=== PATIENT | female | born 1950 ===

== ENCOUNTER 2017-07-21 08:44 | Day surgery (SDC) | payer MEDICARE ==
[2017-07-18 10:43] VITALS: BMI 28.3
[2017-07-21] MEDS ORDERED: Midazolam 2 MG/2 ML VIAL ONE (09:22)
[2017-07-21] MEDS ORDERED: Lidocaine 1% Inj (20ml) ONE (09:23)
[2017-07-21 09:35] LABS: BASO # 0.01 K/mm3 (0.0-2.0); BASO % 0.2 % (0.0-3.0); EOS # 0.1 (0.0-0.7); EOS % 1.7 % (1.5-5.0); GRAN # 2.52 (1.4-6.5); HEMOGLOBIN 13.3 g/dL (12.0-16.0); LYMPH # 1.7 (1.2-3.4); LYMPH % 36.6 % (22.0-35.0); MEAN CELL VOLUME 93.5 fl (80.0-105.0); MEAN CORPUSCULAR HEMOGLOBIN 31.1 pg (25.0-35.0); MEAN CORPUSCULAR HGB CONC 33.3 g/dl (31.0-37.0); MEAN PLATELET VOLUME 10.1 fl (7.0-11.0); MONO # 0.4 (0.1-0.6); MONO % 7.5 % (1.0-6.0); RBC 4.28 10^6/uL (3.5-6.1); WHITE BLOOD COUNT 4.7 10^3/ul (4.5-11.0)
[2017-07-21 09:57] LABS: INR 0.92 (0.93-1.08); PARTIAL THROMBOPLASTIN TIME 29.4 Seconds (25.1-36.5); PROTHROMBIN TIME 10.6 SECONDS (9.4-12.5)
[2017-07-21] MEDS ORDERED: Oxycodone/Acetaminophen 5/325 mg Tab PO PRN (10:09)
[2017-07-21] MEDS ORDERED: Sodium Chloride 0.45% 1,000 ML IV SCH (10:15)
[2017-07-21 11:36] VITALS: RESP 18; TEMP 98.4; O2SAT 96
[2017-07-21 12:35] VITALS: BP 110/60; PULSE 58
--- NOTE | 2017-07-21 14:52 | US ---
PROCEDURE: Ultrasound-guided thyroid fine needle aspiration biopsy. CLINICAL HISTORY: Dominant 1.5 cm isoechoic nodule in the isthmus. Evaluate for malignancy. PHYSICIAN(S): Richard Treviño M.D. TECHNIQUE: The relative risks and indications for the procedure were explained to the patient through a concert singer and consent obtained. The patient was placed supine on the stretcher with the neck extended and preliminary sonography of the thyroid performed. This reveal 1.5 cm isoechoic nodule in the isthmus. Smaller nodules are noted on the right The neck was prepped and draped in the usual sterile fashion. Conscious sedation and monitoring were provided throughout the procedure by a nurse. 1% Xylocaine was used to anesthetize the skin and soft tissues at the access site. Three passes with a 22-gauge needle were performed under ultrasound guidance for fine needle aspiration of the 1.5 cm isoechoic nodule in the isthmus. The slides were reviewed by pathology and deemed adequate. The patient tolerated the procedure well. IMPRESSION: 1. Ultrasound guided fine needle aspiration of a 0.5 cm isoechoicnodule in the isthmus
== END 2017-07-21 12:45 | disposition home or self-care (01) ==
LOC: SDS 08:44
PROVIDERS: ATTEND Radiology Vascular & Interventional Radiology
DX: E04.1 Nontoxic single thyroid nodule (principal)
CPT/HCPCS: 10022; 36415; 76942; 85025; 85610; 85730; 88173; 88305; 99152; J2250; J2405; J3010; J7030